=== PATIENT | male | born 1990 | race African-American/Black ===

== ENCOUNTER 2017-02-24 09:42 | Emergency (ER) | payer BC, OTHER ==
[~2017-02-24] VITALS: Ht 182.9 cm; Wt 88.5 kg
[~2017-02-24 09:42] MED LIST: ALLEGRA ALLERG180 MG; ALLEGRA60 MG PO; BACTRIM DS TAB1 EACH PO; BENADRYL25 MG; CLEOCIN HCL150 MG PO; FISH OIL + VIT1 EACH PO; FLEXERIL PO; IBUPROFEN 800800 MG PO; NORCO 5-325 TA1 EACH PO; VENTOLIN HFA 1818 GM INH; VITAMIN D31000 UNI2 PO; VITCB500GO PO; ZPAK PO; ZYRTEC 10 MG TA10 MG PO
[2017-02-24] MEDS ORDERED: NORCO 5-325 TA1 EACH PO (11:33)
[2017-02-24] MEDS ORDERED: IBUPROFEN 600600 M1 PO (11:33)
== END 2017-02-24 11:50 | disposition home or self-care (01) ==
LOC: ER 09:42
DX: S62.305A Unspecified fracture of fourth metacarpal bone, left hand, initial encounter for closed fracture (principal); F10.99 Alcohol use, unspecified with unspecified alcohol-induced disorder; X58.XXXA Exposure to other specified factors, initial encounter; Y93.89 Activity, other specified; Y92.89 Other specified places as the place of occurrence of the external cause; Y99.8 Other external cause status

== ENCOUNTER 2018-10-20 08:58 | Emergency (ER) | payer BC, OTHER ==
[~2018-10-20] VITALS: Ht 167.6 cm; Wt 99.8 kg
[2018-10-20 08:58] VITALS: BP 123/83
[~2018-10-20 08:58] MED LIST changes: +IBUPROFEN 600600 M1 PO
[2018-10-20] MEDS ORDERED: VENTOLIN HFA 1818 GM INH (09:25)
== END 2018-10-20 09:30 | disposition home or self-care (01) ==
LOC: ER 08:58
DX: M54.5 Low back pain (principal); Z76.0 Encounter for issue of repeat prescription; Z87.891 Personal history of nicotine dependence

== ENCOUNTER 2019-11-02 09:14 | Emergency (ER) | payer BC, OTHER ==
[~2019-11-02] VITALS: Ht 167.6 cm; Wt 99.8 kg
[2019-11-02] MEDS ORDERED: PROAIR HFA8.5 GM INH (09:34)
[2019-11-02 09:38] VITALS: BP 156/95
== END 2019-11-02 09:39 | disposition home or self-care (01) ==
LOC: ER 09:14
DX: J45.909 Unspecified asthma, uncomplicated (principal); Z76.0 Encounter for issue of repeat prescription; Z91.048 Other nonmedicinal substance allergy status; Z79.899 Other long term (current) drug therapy; Z87.891 Personal history of nicotine dependence

== ENCOUNTER 2020-10-21 15:25 | Emergency (ER) | payer BC, OTHER ==
[~2020-10-21] VITALS: Ht 167.6 cm; Wt 99.8 kg
[~2020-10-21 15:25] MED LIST changes: +PROAIR HFA8.5 GM INH
[2020-10-21] MEDS ORDERED: PROAIR HFA8.5 GM INH (15:44)
[2020-10-21 15:50] VITALS: BP 139/84
== END 2020-10-21 15:52 | disposition home or self-care (01) ==
LOC: ER 15:25
DX: J98.01 Acute bronchospasm (principal); Z76.0 Encounter for issue of repeat prescription; Z87.891 Personal history of nicotine dependence

== ENCOUNTER 2021-06-12 08:59 | Emergency (ER) | payer BC, OTHER ==
[~2021-06-12] VITALS: Ht 167.6 cm; Wt 99.8 kg
[2021-06-12 08:59] VITALS: BP 152/93
[2021-06-12 09:43] LABS: ABSOLUTE NEUTROPHILS 4.3 thou/uL (1.4-8.2); BASOPHILS 1.2 % (0.0-2.0); EOSINOPHILS 1.7 % (0.0-3.0); HEMATOCRIT 43.7 % (42.0-52.0); HEMOGLOBIN 14.6 gm/dL (14.0-18.0); LYMPHOCYTES 23.4 % (24.0-44.0); MCHC 33.3 g/dL (28.0-37.0); MCV 95.9 fL (80.0-100.0); MONOCYTES 8.8 % (1.0-8.0); PLATELET COUNT 269 thou/uL (150-400); POLYS 64.9 % (36.0-66.0); RBC 4.55 mil/uL (4.50-6.00); RDW 12.3 % (10.5-14.5); WBC 6.6 thou/uL (4.0-11.0)
[2021-06-12 09:55] LABS: CALCIUM 9.1 mg/dL (8.5-10.1); CREATININE 0.9 mg/dL (0.7-1.3); POTASSIUM 3.6 mmol/L (3.5-5.1)
--- NOTE | 2021-06-13 08:38 | EKG ---
[place] [address] [facility] [place] [address] ELECTROCARDIOGRAM REPORT Name: WILTON STRAUSS Room [facility]: [facility] [id number] Admission: 06/12/21 Attend Phys: Discharge: 06/12/21 Date of : [birth year] Report #: [id number] [facility] ED Test Date: 2021-06-12 Test Time: 09:05:41 Pat Name: WILTON STRAUSS Department: Room: Gender: Pyrometer Temperature Regulator: Lawrence WHYTE : 1990 Requested By: Claudy Sexton Order Number: [id number] MD: Phil Coelho Measurements Intervals Early Rate: 64 P: 31 NM: 148 QRS: 44 QRSD: 98 T: 19 QT: 372 QTc: 384 Interpretive Statements Sinus rhythm Probable anteroseptal infarct, old Compared to ECG 10/24/2015 01:05:40 Myocardial infarct finding now present Ventricular premature complex(es) no longer present Electronically Signed On 06-13-2021 8:37:52 [employer] by Phil Coelho [email or web address] <ELECTRONICALLY SIGNED> By: Phil Coelho MD, [facility] 06/13/2137 4 4 Phil Coelho MD, FAC /EPI
== END 2021-06-12 10:31 | disposition home or self-care (01) ==
LOC: ER 08:59
PROVIDERS: Student in an Organized Health Care Education/Training Program
DX: R07.89 Other chest pain (principal); Z87.891 Personal history of nicotine dependence